=== PATIENT | female | born 1980 | race Caucasian/White ===

== ENCOUNTER 2022-08-28 03:42 | Emergency (ER) | payer BC, SELFPAY ==
[2022-08-28 03:57] VITALS: BP 125/85; PULSE 115; RESP 18; TEMP 36.8; O2SAT 99; BMI 23.9
[2022-08-28 04:35] VITALS: O2SAT 98
[2022-08-28] MEDS: 0.9 % SODIUM CHLORIDE 1000 ml 1,000 ML IV (04:43)
--- OUTSIDE RECORDS SUMMARY | 2022-08-28 04:47 | XMS_ITS | Encounter Summary ---
:1980 Author Organization [facility] Address [address] [place] [address] Care Team Providers Name Role Phone Ashley Ojeda DO Primary Care Provider Reason for Visit Reason Comments Consult Joint Pain Consultation (Routine) - Pending Review Specialty Diagnoses / Procedures Referred By Contact Refer red To Contact Rheumatology Diagnoses Inflammatory polyarthritis (H) Ashley [facility] DO [facility] [address] [place] [address] Referral ID Status Reason Start Date Expiration Date Visits V isits Requested Authorized [id number] Pending 07/06/2022 07/06/2023 1 1 Review Encounter Details Date Type Department Care Team Description 07/14/2022 Office Visit [facility] Pamella Soto gatchi erosive rheumatoid arthritis (H) (Primary Dx); [facility] [place] MAHIN Ferguson High risk medications (not anticoagulant s) long-term use; [address] [facility] [place] [address] [place], [place] [phone] (Work) [phone] Social History Tobacco Use Types Packs/Day Years Used Date Smoking Tobacco: Never Smokeless Tobacco: Never Sex Assigned at Date Recorded Not on file COVID-19 Exposure Response Date Recorded In the last 10 days, have you been in contact with No / Unsu re 07/14/2022 9:52 AM CDT someone who was confirmed or suspected to have Coronavirus/COVID-19? documented as of this encounter Last Filed Vital Signs Vital Sign Reading Time Taken Comments Blood Pressure 120/80 07/14/2022 9:57 AM CDT Pulse - - Temperature - - Respiratory Rate - - Oxygen Saturation - - Inhaled Oxygen Concentration - - Weight 59 kg (130 lb) 07/14/2022 9:57 AM CDT Height 170.2 cm (5' 7) 07/14/2022 9:57 AM CDT Body Mass Index 20.36 07/14/2022 9:57 AM CDT documented in this encounter Patient Instructions Patient InstructionsPamella Soto PA-C - 07/14/2022 10:00 AM CDT After Visit Instructions: Thank you for coming to [facility] Rheumatology for your care. It is my goal to partner with you to help you reach your optimal state of health. Plan: Will get you scheduled with one of our Staff Instrument Mechanic MD's for their opinion. I will send a message and someone will call you to help get you scheduled with them. Pamella Soto PA-C [facility] Rheumatology [facility] Contact information: [facility] Rheumatology Clinic Number: [phone] Please call or send a [place] message with any questions about your care documented in this encounter Progress Notes Pamella Soto PA-C - 07/14/2022 10:00 AM CDT Rheumatology Clinic Visit [facility] RENNY Myers Date of : 1980 Age: [age] year old Date of Visit: 07/14/2022 Primary care provider: Ashley Ojeda Assessment and Plan: 1. Seronegative rheumatoid arthritis 2. High-risk medication use 3. On prednisone therapy Patient presents today with her mother for an evaluation of her seronegative rheumatoid arthritis. She has been working with rheumatology for many years and unfortunately has had difficult to control disease. Most recently she has tried rituximab. She received the second dose in March. Unfortunately she has not noticed a benefit from it. She continues on daily prednisone. She reports being on prednisone therapy for at least 20 years. She has been unable to go lower than 10 mg due to an uptick in symptoms. Unfortunately she has also started to have side effects to the prednisone including mood changes and she also feels that it is affecting her spine. She presents today to seek a second opinion. Discussed with the patient that she has had very difficult to treat rheumatoid arthritis having tried multiple immunomodulatory medications including conventional DMARDs as well as Biologics without significant benefit. Most recently she had 2 doses of rituximab. She continues to have very active disea se. She has significant synovitis of her bilateral wrists. She is starting to have some flexion deformities of her PIPs and has significant reduced range of motion of her bilateral wrists. As she has been on multiple forms of immunomodulatory medication and continues to have persistent disease I thinkshe should see one of our staff insurance representative for further treatment recommendations. Patient is open to this. She is aware that she will get a call for this appointment. Pamella Soto, [facility] Rheumatology History of Present Illness: Ashley Gardner presents for evaluation of seronegative rheumatoid arthritis. History of blood clots.History of TAMIKA (diagnosed at age 13). She has had a right total hip arthroplasty (February 2021). She states that she is looking for a second opinion on something that can benefit her for her arthritis. She states that she has tried working with other providers and she would like to see what other options are. She states she would try something and she would not benefit but would also feel that her internal system was failing with what she tried. She states that she has had too many close calls. She most recently tried rituximab. She states that when she got the second dose of rituximab she had an allergic reaction and feels there were too many red flags. She states that she has been very sensitive to medications. She received her 2nd dose of Rituximab in 04/15. Patient has been working with Dr. Zendejas. Last office visit was June 04, 2022. She is currently on Prednisone. She feels this is affecting her spine. She takes 10mg daily. She states that sometimes she thinks she needs to take more. She feels that she needs to take something in order to physically walk. She is not sure when she was last off Prednisone. She thinks she has been on this for at lease 20years. She states that currently she has pain in her hands, wrists, spine, hips, feet and ankles. She has been having some neck pain as well. She went to the chiropractor to have an adjustment. Rheumatologic medications: Tried infliximab and etanercept, or adalimumab, rituximab (most recent) abatacept, leflunomide (caused her to feel out of it), methotrexate (caused shortness of breath), tocilizumab. Upadacitinib (only took for a couple of days, stopped as she noticed swelling in one of her ankles), azathioprine, cyc losporine, sulfasalazine. Allergy list notes that she is allergic to hydroxychloroquine and sulfa. Tofacitinib cause shortness of breath, left-sided pain, rash and UTI Pertinent lab history: ?? HLA-B27 was negative in 2019 ?? And 2018 she had a positive LONNIE with a homogenous pattern and a titer of 1: 320, sub serologies including the X RAY PHYSICIAN, [place], SSA, and SSB were all normal/negative, double-stranded DNA was negative ?? In 2018 the CCP antibody and rheumatoid factor were both normal/negative Review of Systems: Constitutional: negative Skin: negative Eyes: negative Ears/Nose/Throat: negative Respiratory: No shortness of breath, dyspnea on exertion, cough, or hemoptysis Cardiovascular: negative Gastrointestinal: negative Genitourinary: negative Musculoskeletal: as above Neurologic: negative Psychiatric: negative Hematologic/Lymphatic/Immunologic: negative Endocrine: negative Active Problem List: There are no problems to display for this patient. Past Medical History: No past medical history on file. No past surgical history on file. Social History: Social History Socioeconomic History ??? Marital status: Single Spouse name: Not on file ??? Number of children: Not on file ??? Years of education: Not on file ??? Highest education level: Not on file Occupational History ??? Not on file Tobacco Use ??? Smoking status: Not on file ??? Smokeless tobacco: Not on file Substance and Sexual Activity ??? Alcohol use: Not on file ??? Drug use: Not on file ??? Sexual activity: Not on file Other Topics Concern ??? Not on file Social History Narrative ??? Not on file Social Determinants of Health Financial Resource Strain: Not on file Food Insecurity: Not on file Transportation Needs: Not on file Physical Activity: Not on file Stress: Not on file Social Connections: Not on file Intimate Partner Violence: Not on file Housing Stability: Not on file Family History: No family history on file. Allergies: Allergies Allergen Reactions ??? [place] Oil Anaphylaxis ??? Methotrexate Shortness Of Breath ??? Sodium Metabisulfite Shortness Of Breath ??? Tofacitinib Shortness Of Breath Left side pain, rash, uti ??? Estrogens Other reaction(s): *Unknown ??? Leflunomide Other (See Comments) out of it ??? Enoxaparin Rash ??? Penicillins Rash Medications: No current outpatient medications on file. Physical Exam: There were no vitals taken for this visit. Wt Readings from Last 6 Encounters: 02/05/22 59 kg (130 lb) Constitutional: well-developed, appearing stated age; cooperative Eyes: nl PERRLA, conjunctiva, sclera ENT: nl external ears, nose, hearing, lips, teeth, gums, throat. No mucositis. No mucous membrane lesions, normal saliva pool Neck: no mass or thyroid enlargement Resp: lungs clear to auscultation CV: RRR, no murmurs, rubs or gallops, no edema Lymph: no cervical, supraclavicular or epitrochlear nodes MS: The TMJ, shoulder, elbow, wrist, MCP/PIP/DIP, knee, ankle, and foot MTP/IP joints were examined.No MTP squeeze tenderness. She has tenderness to palpation of her bilateral wrists with very active synovitis. She has some flexion deformities of the left second third and fourth PIPs and the second and third right PIPs. Significantly reduced range of motion of bilateral wrists. She has full joint range of motion of the bilateral shoulders. Skin: no nail pitting, alopecia, rash, nodules or lesions. Neuro: nl cranial nerves. Psych: nl judgement, orientation, memory, affect. Data: Imagin02/05/2022 xray right shoulder Impression: ?? 1. Right shoulder negative for fracture or joint malalignment. ?? 2. Maintained joint spacing in the glenohumeral and acromioclavicular joints, with relative absence of degenerative arthritis. ?? 3. Cortical erosions versus defect in the posterior superior humeral head, may represent sequela of inflammatory arthritis, chronic rotator cuff tendinopathy, or prior humeral subluxation injury. No glenoid deformity or erosion. 04/29/2021 xray left wrist IMPRESSION: 1. Narrowing of the radiocarpal joint space. 2. Flexion subluxation of the radiocarpal joint space best appreciate on the lateral view may be more positional than real. 3. Questionable irregularity the dorsal triquetrum. Without trauma this is unlikely to reflect a fracture. 4. Dorsal soft tissue swelling. Xray lumbar spine 08/12/2020 IMPRESSION. See subsequent report for SI joints. Mild nonspecific degeneration in the facet joints at L5-S1. Associated disc degeneration and narrowing is present. Remaining lumbar disc spaces appear normal with normal alignment. No signs of acute compression fracture, suspicious osseous lesion, There is advanced joint space narrowing in the hips. Xray SI joints 08/12/2020 IMPRESSION: Joint spaces are maintained. No bony ankylosis or marginal erosive changes by conventional radiography. No fractures or osseous suspicious lesions. Advanced joint space narrowing is present in the right hip and superior joint space narrowing to a lesser degree within the left hip along the superior joint margin. Laboratory: 04/07/2021 AST 30, ALT 35 Albumin 3.1 05/12/2022 Creatinine 0.62, GFR greater than 90 White blood cell count 12.8, hemoglobin 9.1, platelet count 459 Sed rate 102 C-reactive protein 9.67 documented in this encounter Plan of Treatment Upcoming Encounters Date Type Specialty Care Team Description 11/20/2022 Office Visit Rheumatology Eugenio Flaherty MD [address] [place] [id number] (Wo rk) documented as of this encounter Visit Diagnoses Diagnosis Seronegative erosive rheumatoid arthriti s (H) - Primary High risk medications (not anticoagulant s) long-term use Encounter for long-term (current) use of other medications On prednisone therapy documented in this encounter Care Teams School Bus Driver/Teacher Assistant Relationship Specialty Start Date End Date Ashley Ojeda DO PCP - General 02/05/[address] [id number] documented as of this encounter
--- OUTSIDE RECORDS SUMMARY | 2022-08-28 04:47 | XMS_ITS | Clinical Summary ---
:1980 Author Organization [employer] Address [place] [address] Care Team Providers Name Role Phone Ashley Ojeda Primary Care Provider Niraj Zendejas MD Unavailable Madeline Pickard MD Unavailable Angie Balderrama CLERICAL ADMINISTRATOR Unavailable Allergies Active Allergy Reactions Severity Noted Date Comments [place] Anaphylaxis High 04/27/2020 Estrogens *Unknown 09/20/2012 Leflunomide Other - Describe In Comment 01/10/2018 out of it Field Enoxaparin Rash 09/19/2009 Methotrexate Shortness Of Breath 01/10/2018 Penicillins Rash 12/30/2006 Sulfite Shortness Of Breath 10/17/2019 Tofacitinib Shortness Of Breath 10/17/2019 Left susanne e pain, rash, uti Medications Medication Sig Dispensed Refills Start End Date Status Date predniSONE Take 2 Tablets 100 Tablet 1 Act chi (DELTASONE) 5 mg (10 mg) by mouth 2 tabletIndication once daily with a s: Rheumatoid meal. Or as arthritis, directed seropositive (HC) escitalopram Take 1/2 tab 30 Tablet 0 08/12/20 Disc ontinued oxalate daily. 2 22 (*Patient states (LEXAPRO) 5 mg no lo nger tabletIndication maude ing/Not on s: Depression, sendi ng facility unspecified list) depression type ibuprofen Take 1 Tablet 30 Tablet 0 08/12/20 Discon tinued (ADVIL; MOTRIN) (600 mg) by mouth 2 22 (*Patient states 600 mg every 6 hours if no longer tabletIndication needed for Pain. taking/Not on s: Rheumatoid Maximum of 3200 sending facility arthritis of mg in 24 hours. l ist) both ankles, unspecified whether rheumatoid factor present (HC), Pain in both lower extremities, ESR raised HYDROcodone-acet Take 1-2 Tablets 15 Tablet 0 Discontinued aminophen by mouth every 4 2 22 (*P atient states (NORCO) 5-325 mg hours if needed no longer per for Pain. Max taking /Not on tabletIndication acetaminophen sending facility s: Rheumatoid dose: 4000mg in list) arthritis of 24 hrs. both ankles, unspecified whether rheumatoid factor present (HC), Pain in both lower extremities, ESR raised HYDROcodone-acet Take 1 Tablet by 15 Tablet 0 aminophen mouth every 4 2 22 ([place]) 5-325 mg hours if needed per for Pain. Max tabletIndication acetaminophen s: Rheumatoid dose: 4000 mg in arthritis 24 hrs. involving left wrist, unspecified whether rheumatoid factor present (HC) Active Problems Problem Noted Date History of DVT of lower extremity 03/19/2021 Status post total replacement of left hip 03/19/2021 Steroid dependence 03/13/2021 Refused influenza vaccine 08/20/2020 Inflammatory polyarthritis 08/20/2020 Hypokalemia 07/19/2020 Overview: Formatting of this note is dif ferent from the original. Secondary to prednisone. POTASSIUM (mmol/L) Date Value 07/19/2020 2.6 (LL) Marijuana use 07/19/2020 Overview: 07/19/2020 positive urine tox screen Generalized weakness 07/19/2020 Microcytic anemia, chronic 07/19/2020 Overview: Formatting of this note is dif ferent from the original. Baseline Hemoglobin 9-10. HEMOGLOBIN (g/dL) Date Value 07/19/2020 9.9 (L) Pain and swelling of left lower leg 07/19/2020 Overview: 07/19/2020 rule out deep vein thrombosis. Personal history of allergy to medicinal agent 020 Food allergy 05/17/2020 Vitamin D deficiency 11/10/2015 Rheumatoid arthritis 08/01/2015 Overview: Chronic corticosteroid use Anticoagulation monitoring, INR range 2-3 10/07/2012 Lumbar disc herniation with radiculopathy 09/20/2012 Factor V Leiden Deficiency 12/30/2006 Overview: History of deep vein thrombosis. 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 11/17/2006 12/05/2006 Acute Venous Embolism and Thrombosis of Other Specified 03/200712/05/2006 Veins Encounters Date Type Specialty Care Team Description 08/26/2022 Office Visit Kristian Stockton, Chiropra ctic Care (NDI DC 42%, REGGIE 36%, K EELE 4/0, 08/19/22: Neck/Upper/Lowe r back pain) 08/26/2022 Travel 08/24/2022 Hospital Encounter Ashley Ojeda DO Rheumatoid arthritis Diandra Thakur, involvi ng right hip, PT unspecified whe ther rheumatoid fact or present (HC) 08/24/2022 Travel 08/19/2022 Office Visit Kristian Stockton Chiropra ctic Care (NDI DC 42%, REGGIE 36%, K EELE 4/0, 08/19/22: Neck/Upper/Lowe r back pain) 08/19/2022 Travel 08/17/2022 Phone Office Visit Anel Villafuertee; Hip MD Leann Pain/problem; B ack Pain; Phone Visit 08/14/2022 Travel 08/14/2022 Nurse Triage Ashley Ojeda DO Back P ain 08/14/2022 Telephone Niraj Zendejas Error-pl ease disregard (See triage enc ounter of today instead o f this encounter) 08/12/2022 Office Visit Vinayak Rubin, Wrist P ain/problem ([facility] ) 08/12/2022 Travel 08/12/2022 Nurse Triage Ashley Ojeda DO Hand P ain/problem 07/28/2022 Telephone Ashley Ojeda DO Referr al (Physical therapy ) 07/22/2022 Telephone Niraj Zendejas, Concerns 07/02/2022 Telephone Ashley Ojeda DO messag e 06/26/2022 Telephone Niraj Zendejas, Hip Pain /problem 06/04/2022 Office Visit Niraj Zendejas, Follow U p (Last Visit 03/18/22) 06/04/2022 Travel from Last 3 Months Immunizations Name Administration Dates Next Due Influenza, IIV3 (Age >=3 years) 08/26/2009, 08/24/2007 MMR 02/12/1995 Td (Age >=7 Years) 06/11/1998 Tdap 04/07/2015 Tuberculin (PPD) 02/19/2003 Family History Medical History Relation Name Comments Asthma Brother Arthritis Father Tariq Cancer Father Tariq kidney Diabetes Father Tariq GI Disease Father Tariq Hypertension Father Tariq Psychiatric illness Father Tariq Depression Blood Disease Maternal Grandmother clotting di sorder Allergies Mother Estrella Arthritis Mother Estrella Hypertension Mother Estrella Psychiatric illness Mother Estrella Depression Blood Disease Paternal Aunt factor v clottin g disorder Relation Name Status Comments Brother Father Tariq Alive Maternal Grandmother Mother Estrella Alive Paternal Aunt Social History Tobacco Use Types Packs/Day Years Used Date Former Smoker Cigarettes 0 7 Quit: 12/22/19 13 Smokeless Tobacco: Never Used Tobacco Cessation: Counseling Given: Yes Comments: not currently smoking Alcohol Use Standard Drinks/Week Comments No 0 (1 standard drink = 0.6 oz pure alcoho l) Alcohol Habits Answer Date Recorded How often do you have a drink containing alcohol? Never 03/30/2019 How many drinks containing alcohol do you have on a typical Not asked day when you are drinking? How often do you have six or more drinks on one occasion? No t asked Comment: Not asked Sex Assigned at Date Recorded Not on file COVID-19 Exposure Response Date Recorded In the last 10 days, have you been in contact with No / Unsu re 08/26/2022 10:03 AM CDT someone who was confirmed or suspected to have Coronavirus/COVID-19? Obstetrics History Para Term AB IAB SAB Ectopic Multiple Living Live Births 2 1 1 0 0 0 0 0 1 1 Date Outcome GA Total Labor/2nd/3rd Weight Sex Delivery Anes PTL Nicki A 1 A5 Name Clin Labor Term 06/01 38w 3.35 kg M Vag Intra Nataly 8 9 den McInt /2004 0d (7 lb 6 theca ng yre oz) l Delivery Location: [facility] Last Filed Vital Signs Vital Sign Reading Time Taken Comments Blood Pressure 116/78 08/19/2022 10:06 AM CDT Pulse 88 08/19/2022 10:06 AM CDT Temperature 36.8 ??C (98.2 ??F) 05/12/2022 6:43 AM CDT Respiratory Rate 16 06/04/2022 9:31 AM CDT Oxygen Saturation 98% 08/12/2022 3:59 PM CDT Inhaled Oxygen Concentration - - Weight 63.5 kg (140 lb) 08/19/2022 10:06 AM CDT Height 169.5 cm (5' 6.75) 08/19/2022 10:06 AM CDT Body Mass Index 22.09 08/19/2022 10:06 AM CDT Plan of Treatment Upcoming Encounters Date Type Specialty Care Team Description 08/28/2022 Office Visit Ashley Ojeda, DO [address] [place], [place] [address] (Wo rk) 08/28/2022 Appointment Hoda Thakur, PT [address] [place] [address] (Wo rk) 08/31/2022 Office Visit Kristian Stockton, RHONDA [address] [facility] [address] [place] [address] (Wo rk) 08/31/2022 Appointment 09/04/2022 Appointment Hoda Thakur, PT [address] [place], [place] [id number] (Wo rk) 10/05/2022 Office Visit Niraj Zendejas MD [address] [facility] [address] [place] [address] (Wo rk) Health Maintenance Due Date Last Done Comments COVID-19 vaccine series (#1) 06/21/1983 Influenza for age 9-49 06/25/2022 08/26/2009, 08/24/2007 Depression screening for age 12+ 04/12/2023 04/12/2022, , 03/16/2022, Additional history exists Pap test for age 21-65 08/12/2023 08/12/2020, 11/01/2015, 07/22/2012, Additional history exists BMI (ht and wt on same day) for 08/19/2023 08/19/2022, 07/25, age 18+ 06/17/2021, Additional history exists Tetanus booster 04/07/2025 04/07/2015, 06/11/1998 Tdap Completed 04/07/2015 Hepatitis C screening for age Completed 05/22/2021 18-79 Medical Devices Implanted Type Area Warhead Maintenance Specialist Device Shelf Model / Identifier Expiration Serial / Lot Date [id number] - [id number] [employer] Delta Ceramic V40 Femoral Head Right: Mikana 11/27/2024 [id number] / Implanted: Qty: 1 on 03/19/2021 by Noah Beard MD at [facility] [employer] / [id number] Procedures Procedure Name Priority Date/Time Associated Comments Diagnosis CWS PATH REVIEW Routine 08/12/2022 4:43 PM Rheumatoid Result s for this HEMATOLOGY CDT arthritis involving procedur e are in left wrist, the results unspecified whether section. rheumatoid factor present (HC) RED CELL MORPHOLOGY Routine 08/12/2022 4:43 PM Rheumatoid Re sults for this CDT arthritis involving procedur e are in left wrist, the results unspecified whether section. rheumatoid factor present (HC) PLATELET ESTIMATE Routine 08/12/2022 4:43 PM Rheumatoid Resu lts for this CDT arthritis involving procedur e are in left wrist, the results unspecified whether section. rheumatoid factor present (HC) CBC WITH AUTO Routine 08/12/2022 4:43 PM Rheumatoid Results for this DIFFERENTIAL CDT arthritis involving procedur e are in left wrist, the results unspecified whether section. rheumatoid factor present (HC) C-REACTIVE PROTEIN Routine 08/12/2022 4:43 PM Rheumatoid Res ults for this CDT arthritis involving procedur e are in left wrist, the results unspecified whether section. rheumatoid factor present (HC) SEDIMENTATION RATE Routine 08/12/2022 4:43 PM Rheumatoid Res ults for this CDT arthritis involving procedur e are in left wrist, the results unspecified whether section. rheumatoid factor present (HC) CBC WITH AUTO Routine 08/12/2022 4:43 PM Rheumatoid Results for this DIFFERENTIAL CDT arthritis involving procedur e are in left wrist, the results unspecified whether section. rheumatoid factor present (HC) from Last 3 Months Results CWS PATH REVIEW HEMATOLOGY (08/12/2022 4:43 PM CDT) Analysis Performed At [facility] logist Time Signature PATH COMMENT See 08/14/[address] Comment: 3:37 PM CDT LABORATORY-[facility] Comment: Consider peripheral blood morph ology study for high platelets if persists with unknown etiology. Reviewed by Mai Estrada MT, MS ([facility]) on 08/14/2022 Specimen Anatomical Collection Method / Collection Time Recei omar Time (Source) Location / Volume Laterality Blood BLOOD SPECIMEN / Venipuncture / 08/12/2022 4:43 2021 4:45 Unknown Unknown PM CDT PM CDT Vinayak Rubin MD LABORATORY Performing Organization Address City/State/ZIP Code Phon e Number [address] [place] [address] LABORATORY-CENTRAL 2000 LABORATORY (ABNORMAL) SEDIMENTATION RATE (08/12/2022 4:43 PM CDT) [facility] gist Method Time Signature SEDIMENTATION RATE 58 (H) <20 mm/hr 08/12/2022 [facility] 10:31 PM CDT LAB[facility]ATORY[facility] Specimen Anatomical Collection Method / Collection Time Recei omar Time (Source) Location / Volume Laterality Blood BLOOD SPECIMEN / Venipuncture / 08/12/2022 4:43 2021 4:45 Unknown Unknown PM CDT PM CDT Vinayak Rubin MD HEMATOLOGY Performing Organization Address City/State/ZIP Code Phon e Number [address] [place] [address] LABORATORY-CENTRAL 1999 LABORATORY (ABNORMAL) CBC WITH AUTO DIFFERENTIAL (08/12/2022 4:43 PM CDT) [facility] Method Time Signature WHITE BLOOD 13.1 (H) 4.5 - 11.0 08/12/2022 [facility] [address] COUNT thou/cu mm 5:26 PM CDT [facility] RED BLOOD COUNT 5.50 (H) 4.00 - 08/12/2022 [facility] [address] 5.20 5:26 PM CDT [facility] mil/cu mm HEMOGLOBIN 11.0 (L) 12.0 - 08/12/2022 [facility] [address] 16.0 g/dL 5:26 PM CDT [facility] HEMATOCRIT 37.5 33.0 - 08/12/2022 [facility] [address] 51.0 % 5:26 PM CDT [facility] MCV 68 (L) 80 - 100 08/12/[address] fL 5:26 PM CDT [facility] MCH 20.0 (L) 26.0 - 08/12/2022 [facility] [address] 34.0 pg 5:26 PM CDT [facility] MCHC 29.3 (L) 32.0 - 08/12/2022 [facility] [address] 36.0 g/dL 5:26 PM CDT [facility] RDW 21.5 (H) 11.5 - 08/12/2022 [facility] [address] 15.5 % 5:26 PM CDT [facility] PLATELET COUNT 766 (H) 140 - 440 08/12/2022 [facility] [address] thou/cu mm 5:26 PM CDT [facility] MPV 9.2 6.5 - 11.0 08/12/[address] fL 5:26 PM CDT [facility] % NEUT 69.9 % 08/12/2022 [facility] 5:26 PM CDT [facility] % LYMPH 21.8 % 08/12/2022 [facility] [address] 5:26 PM CDT [facility] % MONO 7.7 % 08/12/2022 [facility] [address] 5:26 PM CDT [facility] % EOS 0.3 % 08/12/2022 [facility] 5:26 PM CDT [facility] % BASO 0.3 % 08/12/2022 [facility] 5:26 PM CDT [facility] ABSOLUTE 9.1 (H) 1.7 - 7.0 08/12/2022 [facility] NEUTROPHILS thou/cu mm 5:26 PM CDT [facility] ABSOLUTE 2.9 0.9 - 2.9 08/12/2022 [facility] LYMPHOCYTES thou/cu mm 5:26 PM CDT [facility] ABSOLUTE 1.0 (H) <0.9 08/12/2022 [facility] MONOCYTES thou/cu mm 5:26 PM CDT [facility] ABSOLUTE 0.0 <0.5 08/12/2022 [facility] EOSINOPHILS thou/cu mm 5:26 PM CDT [facility] ABSOLUTE 0.0 <0.3 08/12/2022 [facility] BASOPHILS thou/cu mm 5:26 PM CDT [facility] Specimen Anatomical Collection Method / Collection Time Recei omar Time (Source) Location / Volume Laterality Blood BLOOD SPECIMEN / Venipuncture / 08/12/2022 4:43 2021 4:45 Unknown Unknown PM CDT PM CDT Vinayak Rubin MD HEMATOLOGY Performing Organization Address City/[facility]/ZIP Code Phon e Number [facility] [address] [place] [phone] (ABNORMAL) RED CELL MORPHOLOGY (08/12/2022 4:43 PM CDT) [facility] gist Method Time Signature ELLIPTOCYTES Few 08/12/2022 [facility] 5:26 PM CDT [facility] POLYCHROMASIA Slight 08/12/2022 [facility] 5:26 PM CDT [facility] RBC COMMENT Present (A) RBC morphology 08/12/2022 [facility] appears 5:26 PM CDT [facility]ALTH normal, RBC [facility] within normal limits for newborns. Specimen Anatomical Collection Method / Collection Time Recei omar Time (Source) Location / Volume Laterality Blood BLOOD SPECIMEN / Venipuncture / 08/12/2022 4:43 2021 4:45 Unknown Unknown PM CDT PM CDT Vinayak Rubin MD HEMATOLOGY Performing Organization Address City/[facility] Phon e Number [facility] [address] [place] [phone] (ABNORMAL) PLATELET ESTIMATE (08/12/2022 4:43 PM CDT) [facility] Method Time Signature PLATELET Increased (A) Adequate, No 08/12/2022 [facility] ESTIMATE estimate 5:26 PM CDT [facility] Specimen Anatomical Collection Method / Collection Time Recei omar Time (Source) Location / Volume Laterality Blood BLOOD SPECIMEN / Venipuncture / 08/12/2022 4:43 2021 4:45 Unknown Unknown PM CDT PM CDT Vinayak Rubin MD HEMATOLOGY Performing Organization Address [facility] Phon e Number [facility] [address] [place] [phone] (ABNORMAL) C-REACTIVE PROTEIN (08/12/2022 4:43 PM CDT) [facility] Method Time Signature C-REACTIVE 17.25 (H) <0.50 08/13/2022 [facility] PROTEIN mg/dL 7:08 AM CDT LAB[facility]ATORY[facility] Specimen Anatomical Collection Method / Collection Time Recei omar Time (Source) Location / Volume Laterality Blood BLOOD SPECIMEN / Venipuncture / 08/12/2022 4:43 2021 4:45 Unknown Unknown PM CDT PM CDT Vinayak Rubin MD CHEMISTRY Performing Organization Address City/[facility]/ZIP [facility] Phon e Number [facility] [address] [place] [address] LABORATORY-CENTRAL 2000 LABORATORY from Last 3 Months Insurance Payer Benefit Plan / Subscriber ID Effective Dates Phone Addre ss Type Group [employer] [place] [employer] [id number] 2019-Present [address] [address] [place] [address] Advance Directives Latest Code Status on File Code Status Date Activated Date Inactivated Comments Full Code 03/19/2021 5:44 AM 03/20/2021 1:48 PM Code Status Discussion: Discussed Full Code 07/19/2020 10:25 PM 07/20/2020 11:19 AM Code Status Discussion: Not Discussed Full Code 09/21/2012 4:47 PM 09/22/2012 1:38 PM Full Code 09/20/2012 6:48 PM 09/21/2012 4:47 PM Care Teams Community Product Specialist Relationship Specialty Start Date End Date Ashley Ojeda DO PCP - General Internal Medicine 09/27/17 100 [facility] [place] [address] Niraj Zendejas MD Rheumatology Rheumatology 01/10/18 225 [facility] [address] [place] [address] Madeline Pickard MD Hematology Hematology and Oncology 05/05/21 [address] [place] [address] Angie Balderrama NP Hematology Hematology and Oncology 05/05/21 [address] [place] [address]
--- OUTSIDE RECORDS SUMMARY | 2022-08-28 04:47 | XMS_ITS | Encounter Summary ---
:1980 Author Organization [place] Address [facility] [address] Care Team Providers Name Role Phone Ashley Ojeda DO Primary Care Provider Pamella Soto PA-C Unavailable [phone] Reason for Visit Reason Onset Date Comments Patient Request 07/16/2022 Encounter Details Date Type Department Care Team Description 07/16/2022 [facility] Pamella Soto, Patient Request [place] [facility] [address] [place] [address] [place] [address] [phone] (Wo rk) Social History Tobacco Use Types Packs/Day Years Used Date Smoking Tobacco: Never Smokeless Tobacco: Never Sex Assigned at Date Recorded Not on file COVID-19 Exposure Response Date Recorded In the last 10 days, have you been in contact with No / Unsu re 07/14/2022 9:52 AM CDT someone who was confirmed or suspected to have Coronavirus/COVID-19? documented as of this encounter Miscellaneous Notes Telephone Encounter - Stefania Resendiz - 07/16/2022 9:54 AM CDT [facility] Phone Message May a detailed message be left on voicemail: yes Reason for Call: Other: Questions Pt saw Pamella on 07/14/22. Pamella mentioned pt should see our staff national sales executive for further treatment and that someone will be reaching out to her. She stated she has not received a call yet, and is feeling worst. Pt would like a call back from care to team to see what she can do. Action Taken: Other: [place]HEUM Travel Screening: Not Applicable documented in this encounter Plan of Treatment Upcoming Encounters Date Type Specialty Care Team Description 11/20/2022 Office Visit Rheumatology Eugenio Flaherty MD [address] [place] [phone] (Wo rk) documented as of this encounter Visit Diagnoses Not on filedocumented in this encounter Care Teams Configuration Manager Relationship Specialty Start Date End Date Ashley Ojeda DO PCP - General 02/05/[address] [address] Pamella Soto, Assigned Rheumatology 07/18/22 PA-C Provider [facility] [place] [address] documented as of this encounter
--- OUTSIDE RECORDS SUMMARY | 2022-08-28 04:47 | XMS_ITS | Encounter Summary ---
:1980 Author Organization [place] Address [facility] [place] [address] Care Team Providers Name Role Phone Ashley Ojeda Primary Care Provider Pamella Soto PA-C Unavailable [phone] Reason for Visit Reason Onset Date Comments Flare 07/21/2022 Encounter Details Date Type Department Care Team Description 07/21/2022 Telephone [facility] Pamella Soto Flare [place] [facility] [address] [facility] [address] [place] [address] [place] [address] [phone] (Wo rk) Social History Tobacco Use Types [...] this encounter Miscellaneous Notes Telephone Encounter - Yun Galloway RN - 07/22/2022 10:07 AM CDT Called patient. Patient is unsteady on her feet. And concerned with future ability for ADL and workability preservation. Discussed patient feels lost in self researching her options and self researching has become overwhelming. Advised that often times Just reaching out to the [facility] services can help answer questions/ focus some of her options and reminded it is good to ensure her previous providers who are aware of her hx and tried and failed can provide the best information for her. [facility] RN Telephone Encounter - Pamella Soto PA-C - 07/22/2022 9:48 AM CDT If she can get in sooner that would be ideal. This is for a second opinion. If she feels she needs more prednisone, she should reach out to her corrosion technician with [facility] until she can be seen with rheum. Pamella Soto PA-C on 07/22/2022 at 9:49 AM Telephone Encounter - Yun Galloway RN - 07/21/2022 4:45 PM CDT Pamella; Pt appt with Asparagus Cutter is not until after of the year. 1: Was the intention to get her in sooner with a Provider or was it to be next available? 2: Note indicates not ideal to do prednisone bursts any longer because pt base is at 10 daily already. RN will triage however please indicate any expectation to provide to patient as far as what we can offer until sees Other Provider. [facility] RN Telephone Encounter - Angie Norton - 07/21/2022 9:57 AM CDT Patient is experiencing a flare with all over body pain. She is having difficulty moving around at all. Needs assistance to walk. documented in this encounter Plan of Treatment Upcoming Encounters Date Type Specialty Care Team Description 11/20/2022 Office Visit Rheumatology Eugenio Flaherty MD [address] [place] [phone] (Wo rk) documented as of this encounter Visit Diagnoses Not on filedocumented in this encounter Care Teams Racker Octave Board Relationship Specialty Start Date End Date Ashley Ojeda, PCP - General 02/05/[address] [address] Pamella Soto, Assigned Rheumatology 07/18/22 PA-C Provider [address] [place] [phone] documented as of this encounter
--- OUTSIDE RECORDS SUMMARY | 2022-08-28 04:47 | XMS_ITS | Encounter Summary ---
:1980 Author Organization [place] Address [facility] [place] [address] Care Team Providers Name Role Phone Ashley Ojeda DO Primary Care Provider Reason for Referral Consultation (Routine: Next available opening) - Pending Review Specialty Diagnoses / Procedures Referred By Contact Refer red To Contact Rheumatology Diagnoses Inflammatory polyarthritis (H) Shine Storey MD Referral ID Status Reason Start Date Expiration Date Visits V isits Requested Authorized [id number] Pending 02/05/2022 02/05/2023 1 1 Review Reason for Visit Reason Comments Generalized Body Aches Encounter Details Date Type Department Care Team Description 02/05/2022 Emergency [facility] Blossom Storey MD Acute pain of right shoulder; [facility] Inf lammatory polyarthritis (H); Dept [place] Anemia, unspecified type [address] [facility] [address] [place], [place] [phone] Social History Tobacco Use Types Packs/Day Years Used Date Smoking Tobacco: Never Assessed Sex Assigned at Date Recorded Not on file COVID-19 Exposure Response Date Recorded In the last 10 days, have you been in contact with No / Unsu re 02/05/2022 6:54 AM CDT someone who was confirmed or suspected to have Coronavirus/COVID-19? documented as of this encounter Last Filed Vital Signs Vital Sign Reading Time Taken Comments Blood Pressure 109/68 02/05/2022 10:00 AM CDT Pulse 105 02/05/2022 8:15 AM CDT Temperature 36.6 ??C (97.8 ??F) 02/05/2022 6:58 AM CDT Respiratory Rate 18 02/05/2022 6:58 AM CDT Oxygen Saturation 94% 02/05/2022 10:00 AM CDT Inhaled Oxygen Concentration - - Weight 59 kg (130 lb) 02/05/2022 6:58 AM CDT Height 170.2 cm (5' 7) 02/05/2022 6:58 AM CDT Body Mass Index 20.36 02/05/2022 6:58 AM CDT documented in this encounter Discharge Instructions Discharge InstructionsShine Storey MD - 02/05/2022 9:11 AM CDT Discharge Instructions Extremity Injury You were seen today for an injury to an extremity (arm, hand, leg, or foot). You may have a bruise, strain, or fracture (broken bone). Generally, every Emergency Department visit should have a follow-up clinic visit with either a primary or a specialty clinic/provider. Please follow-up as instructed by your emergency provider today. Return to the Emergency Department right away if: Your pain seems to change or get worse or there is pain in a new area that wasn???t evaluated today. Your extremity becomes pale, cool, blue, or numb or tingling past the injury. You have more drainage, redness or pain in the area of the cut or abrasion. You have pain that you cannot control with the medicine recommended or prescribed here, or you have pain that seems too much for your injury. Your child (who is injured) will not stop crying or is much more fussy than normal. You have new symptoms or anything that worries you. What to Expect: Your swelling and pain may be worse the day after your injury, but should not be severe and should start getting better after that. You should not have new symptoms and your pain should not get worse. You may start to get a bruise over the injured area or below the injured area (bruising can follow gravity). Your movement and strength should get better with time. Some injuries may not show up until after you have left the Emergency Department so it is important to follow-up as directed. Your injury may prevent you from working. Follow-up with your regular provider to get a work releasenote. Pain medications or your injury may make it unsafe to drive or operate machinery. Home Care: RICE: Rest, Ice, Compression, Elevation Rest: Rest your injured area for at least 1-2 days. After that you may start using your extremity again as long as there is not too much pain. Ice: Apply ice your injured area for 15 minutes at a time, at least 3 times a day. Use a cloth between the ice bag and your skin to prevent frostbite. Do not sleep with an ice pack or heating pad on, since this can cause varma or skin injury. Compression: You may use an elastic bandage (Avelino?? Wrap) if it makes you more comfortable. Wrap it just tight enough to provide light compression, like a new pair of socks feels. Loosen the bandage if you have swelling past the bandage. Elevation: Raise the injured area above the level of your heart as much as possible in the first 1-2days. Use Tylenol?? (acetaminophen), Motrin (ibuprofen), or Advil?? (ibuprofen) for your pain unless you have an allergy or are told not to use these medications by your provider. Take the medications as instructed on the package. Tylenol?? (acetaminophen) is in many prescription medicines and non-prescription medicines--check all of your medicines to be sure you aren???t taking more than 3000 mg per day. Please follow any other instructions that were discussed with you by your provider. Stretching/Exercises: You may have been provided with instructions for stretching or exercises. If your injury was to your arm or shoulder and your provider put you in a sling or an immobilizer, it is important that you take off your immobilizer within 3 days and stretch/move your shoulder, unless your provider specifically tells you to not move your shoulder. This is to prevent further injury such as a ???frozen shoulder?? . If you were given a prescription for medicine here today, be sure to read all of the information (including the package insert) that comes with your prescription. This will include important information about the medicine, its side effects, and any warnings that you need to know about. The pharmacist who fills the prescription can provide more information and answer questions you may have about the medicine. If you have questions or concerns that the pharmacist cannot address, please call or return to the Emergency Department. Remember that you can always come back to the Emergency Department if you are not able to see your regular provider in the amount of time listed above, if you get any new symptoms, or if there is anything that worries you. documented in this encounter Medications at Time of Discharge Medication Sig Dispensed Refills Start Date End Date oxyCODONE-acetaminophen Take 1 tablet by 10 tablet 0 202102/08/2022 (PERCOCET) 5-325 MG mouth every 6 hours tablet as needed for pain documented as of this encounter ED Notes Josee Hernandez RN - 02/05/2022 9:58 AM CDT Difficult IV stick Dillon Dumont RN - 02/05/2022 6:56 AM CDT Here for concern of whole body pain. This morning unable to move right shoulder and legs. Has appointment with her rheumotologist for pain control 02/19/22. Took prednisone at 3am. ABCs intact. Shine Storey MD - 02/05/2022 6:53 AM CDT History Chief Complaint: Generalized Body Aches The history is provided by the patient. Ashley Gardner is a 41 year old female with history of inflammatory polyarthritis and rheumatoid arthritis who presents with generalized body aches. Symptoms woke her up this morning at 0300. She was unable to move her right shoulder with associated swelling in her hands. No known trauma, fever, chills, cough, chest pain, vomiting, dysuria, or diarrhea. She describes her pain as a pinched nerve whichshe has experienced before. 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 Shereceived a steroid shot in her arm. She was discharged with a muscle relaxer and told to follow upwith her environmental health technician on February 19. She no longer takes cyclosporine, but she is currently takingprednisone. She last took 5mg of prednisone at 0300. Also, she recently had right hip placement surgery. Review of Systems Constitutional: Negative for chills and fever. Negative for trauma Respiratory: Negative for cough. Cardiovascular: Negative for chest pain. Gastrointestinal: Negative for diarrhea and vomiting. Genitourinary: Negative for dysuria. Musculoskeletal: Positive for arthralgias. All other systems reviewed and are negative. Allergies: Sulfite Estrogens Leflunomide Enoxaparin Methotrexate Penicillins Tofacitinib Medications: None Past Medical History: Rogers allergy DVT of lower extremity Steroid dependence Inflammatory polyarthritis Hypokalemia Microcytic anemia, chronic Vitamin D deficiency Rheumatoid arthritis Lumbar disc herniation with radiculopathy Factor V Leiden Deficiency Past Surgical History: Total replacement of right hip Synovectomy Lumbar diskectomy Family History: Brother: asthma Father: asthma, kidney cancer, diabetes mellitus, GI disease, hypertension, depression Mother: allergies, arthritis, hypertension, depression Social History: Presents with her mother. PCP: No primary care provider on file. Physical Exam Patient Vitals for the past 24 hrs: BP Temp Temp src Pulse Resp SpO2 Height Weight 02/05/22 1000 109/68 -- -- -- -- 94 % -- -- 02/05/22 0945 -- -- -- -- -- 96 % -- -- 02/05/22 0930 -- -- -- -- -- 98 % -- -- 02/05/22 0915 -- -- -- -- -- 97 % -- -- 02/05/22 0900 -- -- -- -- -- 97 % -- -- 02/05/22 0815 111/79 -- -- 105 -- 95 % -- -- 02/05/22 0800 106/66 -- -- 100 -- 99 % -- -- 02/05/22 0730 -- -- -- -- -- 97 % -- -- 02/05/22 0715 98/72 -- -- -- -- -- -- -- 02/05/22 0658 111/79 97.8 ??F (36.6 ??C) Temporal 113 18 100 % 1.702 m (5' 7) 59 kg (130 lb) Physical Exam Constitutional: Well appearing. HEENT: Atraumatic. Moist mucous membranes. Neck: Soft. Supple. No JVD. No swelling, tenderness, or masses. Cardiac: Regular rate and rhythm. No murmur or rub. Respiratory: Clear to auscultation bilaterally. No respiratory distress. No wheezing, rhonchi, or rales. Abdomen: Soft and nontender. Nondistended. Musculoskeletal: She has full active and passive range of motion of the right shoulder. 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 Mild tenderness of the posterior right shoulder with no erythema or effusion of the joint. Distal pulses are intact and symmetric. Some mild swellingof her bilateral MCP and PIP joints and decrease in motion of the bilateral wrist that is baseline per patient. No edema. Normal range of motion. Neurologic: Alert and oriented. Normal tone and bulk. No facial drooping. Normal speech. 5/5 strength in bilateral upper and lower extremities. Sensation to light touch intact throughout. Normal gait. Skin: No rashes. No edema. Psych: Normal affect. Normal behavior. Emergency Department Course Imaging: XR Shoulder Right G/E 3 Views Final Result Impression: 1. Right shoulder negative for fracture or joint malalignment. 2. Maintained joint spacing in the glenohumeral and acromioclavicular joints, with relative absence of degenerative arthritis. 3. Cortical erosions versus defect in the posterior superior humeral head, may represent sequela of inflammatory arthritis, chronic rotator cuff tendinopathy, or prior humeral subluxation injury. No glenoid deformity or erosion. HOMER LOPEZ MD SYSTEM ID: [id number] Report per radiology Laboratory: Labs Ordered and Resulted from Time of ED Arrival to Time of ED Departure COMPREHENSIVE METABOLIC PANEL - Abnormal Result Value Sodium 137 Potassium 3.6 Chloride 106 Carbon Dioxide (CO2) 28 Anion Gap 3 Urea Nitrogen 8 Creatinine 0.48 (*) Calcium 8.4 (*) Glucose 103 (*) Alkaline Phosphatase 178 (*) AST 17 ALT 31 Protein Total 7.2 Albumin 2.0 (*) Bilirubin Total 0.4 GFR Estimate >90 CBC WITH PLATELETS AND DIFFERENTIAL - Abnormal WBC Count 16.0 (*) RBC Count 4.48 Hemoglobin 8.5 (*) Hematocrit 30.0 (*) MCV 67 (*) MCH 19.0 (*) MCHC 28.3 (*) RDW 19.9 (*) Platelet Count 717 (*) % Neutrophils 78 % Lymphocytes 14 % Monocytes 6 % Eosinophils 0 % Basophils 1 % Immature Granulocytes 1 NRBCs per 100 WBC 0 Absolute Neutrophils 12.5 (*) Absolute Lymphocytes 2.3 Absolute Monocytes 0.9 Absolute Eosinophils 0.0 Absolute Basophils 0.1 Absolute Immature Granulocytes 0.2 Absolute NRBCs 0.0 Emergency Department Course: Reviewed: I reviewed nursing notes, vitals, past medical history and Care Everywhere Assessments: 706 I obtained history and examined the patient as noted above. 914 I rechecked the patient and explained findings. Interventions: 0757 Dilaudid 0.5mg IV 0757 Solu-medrol 40mg IV Disposition: The patient was discharged to home. Impression & Plan Medical Decision Making: Ashley Gardner is a 41-year-old woman who is afebrile and hemodynamically stable. She has tendernessto the posterior left shoulder with no obvious effusion or warmth of the right shoulder joint. Thereis no evidence of septic joint. She is neurovascularly intact. She is able to abduct the left shoulder in all directions but feels like it becomes locked sometimes. X-ray demonstrates no acute fracture but there is some erosions versus defect that may be secondary to arthritis, tendinopathy, or previous injuries. She has no previous injuries to the shoulder. I reviewed her rheumatology notes in care everywhere. It appears that she was going to initiate cyclosporine at her last rheumatology visit, however, it appears that she never did that and she does not recall that plan. She was given pain medication here and an increased dose of steroids as a burst. She feels improvements after the above intervention. Lab work-up as noted as above. She has a chronic anemia and has no active bleeding. She had a hemoglobin in March of last year that was also 8.7 is 8.5 today. She has no signs or symptoms of acute blood loss anemia and does not require emergent blood transfusion today. She does not recall anywork-up of her anemia previously so I recommended she follow-up with primary care physician for further work-up and evaluation of her anemia and she is understanding. I think most importantly, she needs to follow-up with her environmental health technician that she has an appointment scheduled on the 02/16/2022. I think this is most important for her to make that appointment and she is understanding. Both her self andher environmental health technician have had presentation with her course of illness and have offered a second opinion. I placed a consult for rheumatology outpatient follow-up through our health system and she is in agreement with this plan. She also talked to her primary care physician. I will give her a small amount of pain medication to help her through until she can follow-up with her primary care physician. I counseled her on the use of opiate pain medication and reviewed her on the [place] prescription monitoring database. She was counseled to use opiate pain medication. She is in agreement with plan her questions were answered. Return precautions were given. I think she is safe for discharge home at thistime. She is in agreement and her questions were answered. She was no distress at time of discharge. Diagnosis: ICD-10-CM 1. Acute pain of right shoulder M25.511 2. Inflammatory polyarthritis (H) M06.4 Adult Rheumatology Die Tester Referral 3. Anemia, unspecified type D64.9 Discharge Medications: Discharge Medication List as of 02/05/2022 9:58 AM START taking these medications Details oxyCODONE-acetaminophen (PERCOCET) 5-325 MG tablet Take 1 tablet by mouth every 6 hours as needed for pain, Disp-10 tablet, R-0, Local Print Scribe Disclosure: I, Courtney Martin, am serving as a scribe at 7:03 AM on 02/05/2022 to document services personally performed by Shine Storey MD based on my observations and the provider's statements to me. Shine Storey MD 02/05/222129 documented in this encounter Plan of Treatment Upcoming Encounters Date Type Specialty Care Team Description 11/20/2022 Office Visit Rheumatology Eugenio Flaherty MD [address] [place] [id number] (Wo rk) Scheduled Referrals Name Type Priority Associated Diagnoses Order S chedule Adult Rheumatology Referral Routine: Next Inflammatory Expected : Die Tester Referral available opening polyarthritis (H) 02/05/2022 (Approximate), Expires: 02/05/2023 documented as of this encounter Procedures Procedure Name Priority Date/Time Associated Comments Diagnosis XR SHOULDER RIGHT G/E STAT 02/05/2022 8:38 AM Results for this 3 VIEWS CDT procedure are i n the results section. EXTRA TUBE STAT 02/05/2022 7:52 AM Results f or this CDT procedure are i n the results section. EXTRA RED TOP TUBE STAT 02/05/2022 7:52 AM Res ults for this CDT procedure are i n the results section. EXTRA BLUE TOP TUBE STAT 02/05/2022 7:52 AM Re sults for this CDT procedure are i n the results section. CBC WITH PLATELETS AND STAT 02/05/2022 7:51 AM Results for this DIFFERENTIAL CDT procedure are i n the results section. CBC WITH PLATELETS & STAT 02/05/2022 7:51 AM R esults for this DIFFERENTIAL CDT procedure are i n the results section. COMPREHENSIVE STAT 02/05/2022 7:51 AM Results for this METABOLIC PANEL CDT procedure ar e in the results section. documented in this encounter Results XR Shoulder Right G/E 3 Views (02/05/2022 8:38 AM CDT) Anatomical Region Laterality Modality Shoulder, Right Shoulder Right Digital Radiogr aphy Specimen (Source) Anatomical Location Collection Method / Collectio n Time Received Time / Laterality Volume Impressions 02/05/2022 8:48 AM CDT Impression: 1. ??Right shoulder negative for fractur e or joint malalignment. 2. ??Maintained joint spacing in the gle nohumeral and acromioclavicular joints, with relative absence of degener ative arthritis. 3. ??Cortical erosions versus defect in the posterior superior humeral head, may represent sequela of inflammat ory arthritis, chronic rotator cuff tendinopathy, or prior humeral subl uxation injury. No glenoid deformity or erosion. HOMER LOPEZ MD SYSTEM ID: ??[id number] Narrative 02/05/2022 8:48 AM CDT Examination: ??XR SHOULDER RIGHT G/E 3 VIEWS Date: ??02/05/2022 8:38 AM Clinical Information: Shoulder pain, his tory of rheumatoid arthritis. Comparison: none. Procedure Note Homer Lopez MD - 2 Examination: XR SHOULDER RIGHT G/E 3 VIE WS Date: 02/05/2022 8:38 AM Clinical Information: Shoulder pain, his tory of rheumatoid arthritis. Comparison: none. Impression: 1. Right shoulder negative for fracture or joint malalignment. 2. Maintained joint spacing in the gleno humeral and acromioclavicular joints, with relative absence of degener ative arthritis. 3. Cortical erosions versus defect in th e posterior superior humeral head, may represent sequela of inflammat ory arthritis, chronic rotator cuff tendinopathy, or prior humeral subl uxation injury. No glenoid deformity or erosion. HOMER LOPEZ MD SYSTEM ID: [id number] Shine Storey MD IMG DIAGNOSTIC IMAGING ORDER WILFRED Extra Red Top Tube (02/05/2022 7:52 AM CDT) athologist Signature Hold Specimen [facility] 02/05/2022 LABORATORY 9:04 AM CDT Specimen Anatomical Collection Method / Collection Time Recei omar Time (Source) Location / Volume Laterality Blood BLOOD SPECIMEN / Venipuncture / 02/05/2022 7:52 2021 8:00 Unknown Unknown AM CDT AM CDT Shine Storey MD LAB - BLOOD ORDERABLES Performing Organization Address City/State/[place] [phone] Care Lab [address] Lab (1st floor, no room number) Extra Blue Top Tube (02/05/2022 7:52 AM CDT) athologist Signature Hold Specimen [facility] 02/05/2022 LABORATORY 9:04 AM CDT Specimen Anatomical Collection Method / Collection Time Recei omar Time (Source) Location / Volume Laterality Blood BLOOD SPECIMEN / Venipuncture / 02/05/2022 7:52 2021 8:01 Unknown Unknown AM CDT AM CDT Shine Storey MD LAB - BLOOD ORDERABLES Performing Organization Address City/State/[place] [phone] Care Lab [address] Lab (1st floor, no room number) (ABNORMAL) CBC with platelets and differential (02/05/2022 7:51 AM CDT) [facility] Method Time Signature WBC Count 16.0 (H) 4.0 - 02/05/2022 [facility] 11.0 8:04 AM CDT 10e3/uL RBC Count 4.48 3.80 - 02/05/2022 [facility] 5.20 8:04 AM CDT 10e6/uL Hemoglobin 8.5 (L) 11.7 - 02/05/2022 [facility] 15.7 g/dL 8:04 AM CDT Hematocrit 30.0 (L) 35.0 - 02/05/2022 [facility] 47.0 % 8:04 AM CDT MCV 67 (L) 78 - 100 02/05/2022 [facility] fL 8:04 AM CDT MCH 19.0 (L) 26.5 - 02/05/2022 [facility] 33.0 pg 8:04 AM CDT MCHC 28.3 (L) 31.5 - 02/05/2022 [facility] 36.5 g/dL 8:04 AM CDT RDW 19.9 (H) 10.0 - 02/05/2022 [facility] 15.0 % 8:04 AM CDT Platelet Count 717 (H) 150 - 450 02/05/2022 [facility] 10e3/uL 8:04 AM CDT % Neutrophils 78 % 02/05/2022 [facility] 8:04 AM CDT % Lymphocytes 14 % 02/05/2022 [facility] 8:04 AM CDT % Monocytes 6 % 02/05/2022 [facility] 8:04 AM CDT % Eosinophils 0 % 02/05/2022 [facility] 8:04 AM CDT % Basophils 1 % 02/05/2022 [facility] 8:04 AM CDT % Immature 1 % 02/05/2022 [facility] Granulocytes 8:04 AM CDT NRBCs per 100 0 <1 /100 02/05/2022 [facility] WBC 8:04 AM CDT Absolute 12.5 (H) 1.6 - 8.3 02/05/2022 [facility] Neutrophils 10e3/uL 8:04 AM CDT Absolute 2.3 0.8 - 5.3 02/05/2022 [facility] Lymphocytes 10e3/uL 8:04 AM CDT Absolute 0.9 0.0 - 1.3 02/05/2022 [facility] Monocytes 10e3/uL 8:04 AM CDT Absolute 0.0 0.0 - 0.7 02/05/2022 [facility] Eosinophils 10e3/uL 8:04 AM CDT Absolute 0.1 0.0 - 0.2 02/05/2022 [facility] Basophils 10e3/uL 8:04 AM CDT Absolute 0.2 <=0.4 02/05/2022 [facility] Immature 10e3/uL 8:04 AM CDT Granulocytes Absolute NRBCs 0.0 10e3/uL 02/05/2022 [facility] 8:04 AM CDT Specimen Anatomical Collection Method / Collection Time Recei omar Time (Source) Location / Volume Laterality Blood BLOOD SPECIMEN / Venipuncture / 02/05/2022 7:51 2021 8:00 Unknown Unknown AM CDT AM CDT Shine Storey MD LAB - BLOOD ORDERABLES Performing Organization Address City/State/ZIP Code Phon e Number [facility] [place] [address] Care Lab [address] Lab (1st floor, no room number) (ABNORMAL) Comprehensive metabolic panel (02/05/2022 7:51 AM CDT) [facility] gist Method Time Signature Sodium 137 133 - 144 02/05/2022 LABORATORY mmol/L 8:29 AM CDT Potassium 3.6 3.4 - 5.3 02/05/2022 [facility] mmol/L 8:29 AM CDT Chloride 106 94 - 109 02/05/2022 [facility] mmol/L 8:29 AM CDT Carbon Dioxide 28 20 - 32 02/05/2022 LABORATORY (CO2) mmol/L 8:29 AM CDT Anion Gap 3 3 - 14 02/05/2022 [facility] mmol/L 8:29 AM CDT Urea Nitrogen 8 7 - 30 02/05/2022 [facility] mg/dL 8:29 AM CDT Creatinine 0.48 (L) 0.52 - 02/05/2022 [facility] 1.04 8:29 AM CDT mg/dL Calcium 8.4 (L) 8.5 - 02/05/2022 LABORATORY 10.1 8:29 AM CDT mg/dL Glucose 103 (H) 70 - 99 02/05/2022 LABORATORY mg/dL 8:29 AM CDT Alkaline 178 (H) 40 - 150 02/05/2022 LABORATORY Phosphatase U/L 8:29 AM CDT AST 17 0 - 45 02/05/2022 LABORATORY U/L 8:29 AM CDT ALT 31 0 - 50 02/05/2022 [facility] U/L 8:29 AM CDT Protein Total 7.2 6.8 - 8.8 02/05/2022 LABORATORY g/dL 8:29 AM CDT Albumin 2.0 (L) 3.4 - 5.0 02/05/2022 LABORATORY g/dL 8:29 AM CDT Bilirubin Total 0.4 0.2 - 1.3 02/05/2022 LABORATORY mg/dL 8:29 AM CDT GFR Estimate >90 >60 02/05/2022 LABORATORY mL/min/1. 8:29 AM CDT 73m2 Comment: Effective October 14, 2021 eGF Rcr in adults is calculated using the 2020 CKD-EPI creatinine equation which includ es age and gender (Db et al., NEJ, DOI: 10.1056/KDKKfl1033322) Specimen Anatomical Collection Method / Collection Time Recei omar Time (Source) Location / Volume Laterality Blood BLOOD SPECIMEN / Venipuncture / 02/05/2022 7:51 2021 8:01 Unknown Unknown AM CDT AM CDT Shine Storey MD LAB - BLOOD ORDERABLES Performing Organization Address City/State/ZIP Code Phon [place] [phone] Care Lab [address] Lab (1st floor, no room number) documented in this encounter Visit Diagnoses Diagnosis Acute pain of right shoulder Inflammatory polyarthritis (H) Unspecified inflammatory polyarthropathy Anemia, unspecified type documented in this encounter Administered Medications Inactive Administered Medications - up to 3 most recent administrations Medication Order MAR Action Action Date Dose Rate Site HYDROmorphone (PF) (DILAUDID) Given 02/05/2022 7:57 AM CDT 0.5 m g injection 0.5 mg 0.5 mg, Intravenous, ONCE, On Kerri 02/05/22 at 0720, For 1 dose methylPREDNISolone sodium succinate Given 02/05/2022 7:57 AM CDT 40 mg (solu-MEDROL) injection 40 mg 40 mg, Intravenous, ONCE, On Kerri 02/05/22 at 0720, For 1 dose, Doses greater than or equal to 1000 mg administer over 60 minutes Doses greater than or equal to 500 mg administer over 30-60 minutes Doses greater than or equal to 250 mg administer over 15-30 minutes Doses less than or equal to 125 mg IVP over 3-5 minutes documented in this encounter Active and Recently Administered Medications Times are shown in CDT. Scheduled Medication Order 02/03/2022 02/04/2022 02/05/2022 HYDROmorphone (PF) (DILAUDID) injection 0.5 mg (COMPLETED) 0757 (Given - Provider: Josee Hernandez, AMITA) 0.5 mg, Intravenous, ONCE, On Kerri 02/05/22 at 0720, For 1 dose methylPREDNISolone sodium succinate (solu-MEDROL) injection 40 m g (COMPLETED) 0757 (Given - Provider: Josee Hernandez, AMITA) 40 mg, Intravenous, ONCE, On Kerri 02/05/22 at 0720, For 1 dose, Doses greater than or equal to 1000 mg administer over 60 minutes Doses greater than or equal to 500 mg administer over 30-60 minutes Doses greater than or equal to 250 mg administ er over 15-30 minutes Doses less than or equal to 125 mg IVP over 3-5 minutes documented in this encounter Care Teams Personal Computer Network Engineer Relationship Specialty Start Date End Date Ashley Ojeda DO PCP - General 02/05/[address] [address] documented as of this encounter
--- OUTSIDE RECORDS SUMMARY | 2022-08-28 04:47 | XMS_ITS | Encounter Summary ---
:1980 Author Organization [place] Address [facility] [place] [address] Care Team Providers Name Role Phone Ashley Ojeda DO Primary Care Provider Pamella Soto PA-C Unavailable [phone] Encounter Details Date Type Department Care Team Description 02/05/2022 Documentation Only INTERFACED REPORT Unknown, Provider Social History Tobacco Use Types Packs/Day Years Used Date Smoking Tobacco: Never Assessed Sex Assigned at Date Recorded Not on file COVID-19 Exposure Response Date Recorded In the last 10 days, have you been in contact with No / Unsu re 02/05/2022 6:54 AM CDT someone who was confirmed or suspected to have Coronavirus/COVID-19? documented as of this encounter Plan of Treatment Upcoming Encounters Date Type Specialty Care Team Description 11/20/2022 Office Visit Rheumatology Eugenio Flaherty MD [address] [place] [phone] (Wo rk) documented as of this encounter Visit Diagnoses Not on filedocumented in this encounter Care Teams Chief Environmental Commitment Officer Relationship Specialty Start Date End Date Ashley Ojeda DO PCP - General 02/05/22 [facility] [address] [address] Pamella Soto, Jovanny Rheumatology 07/18/22 MAHIN Provider [address] [place] [address] documented as of this encounter
--- OUTSIDE RECORDS SUMMARY | 2022-08-28 04:47 | XMS_ITS | Encounter Summary ---
:1980 Author Organization [place] Address [address] [place] [address] Care Team Providers Name Role Phone Ashley Ojeda DO Primary Care Provider Encounter Details Date Type Department Care Team Description 02/05/2022 Travel Social History Tobacco Use Types Packs/Day Years [...] 11/20/2022 Office Visit Rheumatology Eugenio Flaherty MD [address] [place] [address] [phone] (Wo rk) documented as of this encounter Visit Diagnoses Not on filedocumented in this encounter Care Teams Retail Product Advisor Relationship Specialty Start Date End Date Ashley Ojeda DO PCP - General 02/05/[address] [address] [address] documented as of this encounter
--- OUTSIDE RECORDS SUMMARY | 2022-08-28 04:47 | XMS_ITS | Clinical Summary ---
:1980 Author Organization [place] Address [address] [place] [address] Care Team Providers Name Role Phone Ashley Ojeda DO Primary Care Provider Pamella Soto PA-C Unavailable [phone] Allergies Active Allergy Reactions Severity Noted Date Comments [place] Oil Anaphylaxis High 04/27/2020 Enoxaparin Rash Low 09/19/2009 Estrogens 09/20/2012 Other reaction( s): *Unknown Leflunomide Other (See Comments) 01/10/2018 out o f it Methotrexate Shortness Of Breath High 01/10/2018 Penicillins Rash Low 12/30/2006 Sodium Metabisulfite Shortness Of Breath High 10/17/2019 Tofacitinib Shortness Of Breath High 10/17/2019 Left susanne e pain, rash, uti Medications Medication Sig Dispensed Refills Start Date End Date Status HYDROcodone-acetamino Take 1-2 tablets by 0 05/12/20 Active phen (NORCO) 5-325 MG mouth Taking 1/2 tablet tablet as needed ibuprofen Take 600 mg by 0 05/12/2022 Acti ve (ADVIL/MOTRIN) 600 MG mouth tablet predniSONE TAKE 2 TABLETS BY 0 06/26/2022 Active (DELTASONE) 5 MG MOUTH ONCE DAILY tablet WITH A MEAL DIRECTED Encounters Date Type Specialty Care Team Description 07/21/2022 Telephone Rheumatology Pamella Soto Flare MAHIN Ferguson 07/16/2022 Telephone Rheumatology Pamella Soto Patient Req uperfecto Ferguson PA-C 07/14/2022 Office Visit Rheumatology Pamella Soto Seronegativ e erosive rheumatoid arthritis (H) (Primary Dx); MAHIN Ferguson High risk medic ations (not anticoagulants) long-term use; On prednisone t herapy 07/14/2022 Travel 07/03/2022 Telephone Cherrie Mcguire RN Pt. Informa tion/instruction from Last 3 Months Social History Tobacco Use Types Packs/Day Years Used Date Smoking Tobacco: Never Smokeless Tobacco: Never Sex Assigned at Date Recorded Not on file Last Filed Vital Signs Vital Sign Reading Time Taken Comments Blood Pressure 120/80 07/14/2022 9:57 AM CDT Pulse 105 02/05/2022 8:15 AM CDT Temperature 36.6 ??C (97.8 ??F) 02/05/2022 6:58 AM CDT Respiratory Rate 18 02/05/2022 6:58 AM CDT Oxygen Saturation 94% 02/05/2022 10:00 AM CDT Inhaled Oxygen Concentration - - Weight 59 kg (130 lb) 07/14/2022 9:57 AM CDT Height 170.2 cm (5' 7) 07/14/2022 9:57 AM CDT Body Mass Index 20.36 07/14/2022 9:57 AM CDT Plan of Treatment Upcoming Encounters Date Type Specialty Care Team Description 11/20/2022 Office Visit Rheumatology Eugenio Flaherty MD [address] [place] [phone] (Wo rk) Health Maintenance Due Date Last Done Comments ADVANCE CARE PLANNING 1980 ANNUAL REVIEW OF HM ORDERS 1980 HEPATITIS B IMMUNIZATION (1 1982 of 3 - 3-dose series) YEARLY PREVENTIVE VISIT 1980 COVID-19 Vaccine (#1) 06/21/1983 HIV SCREENING 1997 HEPATITIS C SCREENING 2000 PAP 2003 INFLUENZA VACCINE (#1) 2022 08/26/2009, 08/24/2007 DTAP/TDAP/TD IMMUNIZATION (3 04/07/2025 04/07/2015, - Td or Tdap) 06/11/1998 PHQ-2 (once per calendar Completed 07/14/2022 year) IPV IMMUNIZATION Aged Out No longer eligi ble based on patient's age to complete this to pic MENINGITIS IMMUNIZATION Aged Out No longe r eligible based on patient's age to complete this to pic Pneumococcal Vaccine: Aged Out No longer eligible based Pediatrics (0 to 5 Years) and on patient's age to At-Risk Patients (6 to 64 comple te this topic Years) Insurance Payer Benefit Plan / Subscriber ID Effective Dates Phone Addre ss Type Group BLUE PLUS BLUE PLUS [id number] 2019-Present [phone] [address] [place] [id number] HMO ADVANTAGE [place] [address] [place] [address] Care Teams Fiberglass Autobody Repairer Relationship Specialty Start Date End Date Ashley Ojeda DO PCP - General 02/05/[address] [place] [address] Pamella Soto, Assigned Rheumatology 07/18/22 PA-C Provider [address] [place], [place] [phone]
--- OUTSIDE RECORDS SUMMARY | 2022-08-28 04:47 | XMS_ITS | Encounter Summary ---
:1980 Author Organization [place] Address [address] [place] [address] Care Team Providers Name Role Phone Ashley Ojeda DO Primary Care Provider Encounter Details Date Type Department Care Team Description 07/14/2022 Travel Social History Tobacco Use Types Packs/Day [...] 11/20/2022 Office Visit Rheumatology Eugenio Flaherty MD [address] [place] [address] [phone] (Wo rk) documented as of this encounter Visit Diagnoses Not on filedocumented in this encounter Care Teams Health Club Manager Relationship Specialty Start Date End Date Ashley Ojeda DO PCP - General 02/05/[address] [facility] [address] [place] [address] [address] documented as of this encounter
--- OUTSIDE RECORDS SUMMARY | 2022-08-28 04:47 | XMS_ITS | Encounter Summary ---
:1980 Author Organization [place] Address [address] [place] [address] Care Team Providers Name Role Phone Ashley Ojeda DO Primary Care Provider Reason for Visit Reason Onset Date Comments Pt. Information/instruction 07/03/2022 Encounter Details Date Type Department Care Team Description 07/03/2022 Telephone [facility] Nurse Cherrie Mcguire, RN Pt. Advisors Information/instruction [address] [place] [phone] Social History Tobacco Use Types Packs/Day Years Used Date Smoking Tobacco: Never Assessed Sex Assigned at Date Recorded Not on file documented as of this encounter Miscellaneous Notes Telephone Encounter - Cherrie Mcguire RN - 07/03/2022 8:16 AM CDT Pt's mother calling for resources for physical therapy for patient and water therapy. Pt is not with the caller and there is not a consent to communicate, so ad copy writer referred caller to the following website: [email or web address] She is going to look there and discuss with the patient. Cherrie Mcguire RN [facility] Nurse Advisor 8:33 AM 07/03/2022 documented in this encounter Plan of Treatment Upcoming Encounters Date Type Specialty Care Team Description 11/20/2022 Office Visit Rheumatology Eugenio Flaherty MD [address] [place] [address] [phone] (Wo rk) documented as of this encounter Visit Diagnoses Not on filedocumented in this encounter Care Teams Seam Hammerer Relationship Specialty Start Date End Date Ashley Ojeda DO PCP - General 02/05/[address] [address] documented as of this encounter
[2022-08-28] MEDS: KETOROLAC 30 MG/ML inj IVP (04:49)
[2022-08-28] MEDS: LORazepam 2 MG/ML inj 1 MG IVP (04:49)
[2022-08-28] MEDS: METHYLPREDNISOLONE SOD SUCC 62.5 MG/ML (125) 125 MG IVP (04:49)
[2022-08-28 05:27] VITALS: BP 118/77; PULSE 108; RESP 18; O2SAT 98
--- NOTE | 2022-08-28 05:42 | ED.GENADULT ---
HPI - General Adult General Date Seen: 08/28/22 Chief complaint: Headache/Migraine Stated complaint: Headache Time Seen by Provider: 08/28/22 03:45 Source: patient Mode of arrival: ambulatory Limitations: no limitations History of Present Illness HPI narrative: 41-year-old female with a long history of refractory rheumatoid arthritis who presents with three day history of worsening right-sided headache and neck pain. She has been seeing a chiropractor and having regular adjustments. The pain is severe to the point that she is unable to sleep. She has tried Tylenol. She is chronically on prednisone. Her rheumatoid arthritis has been refractory to virtually every medication. She recently got a 2nd opinion from a different assistant director of public works who had nothing new to offer. Her prednisone dose is 10 mg daily. Currently has swelling in her left wrist and left knee as well as the right shoulder and neck. There are no radicular symptoms. No neurologic issues. No visual changes. No nausea or vomiting. Related Data Home Medications Medication Instructions Recorded Confirmed hydrocodone 5 mg-acetaminophen 325 1 tab PO Q4H PRN 08/28/22 08/28/22 mg tablet prednisone 5 mg tablet 10 mg PO DAILY 08/28/22 08/28/22 Previous Rx's Medication Instructions Recorded meloxicam 15 mg tablet 15 mg PO DAILY #30 tabs 08/28/22 tizanidine 4 mg tablet 4 mg PO Q8H PRN muscle spasticity 08/28/22 #30 tabs Allergies Allergy/AdvReac Type Severity Reaction Status Date / Time methotrexate Allergy Intermediate Short of Verified 08/28/22 04:18 Breath sulfite Allergy Intermediate Short of Verified 08/28/22 04:18 Breath tofacitinib Allergy Intermediate Short of Verified 08/28/22 04:18 Breath enoxaparin Allergy Mild Hives Verified 08/28/22 04:18 Estrogens Allergy Mild Unknown Verified 08/28/22 04:18 Penicillins Allergy Mild Hives Verified 08/28/22 04:18 Review of Systems Narrative: Review of systems is as outlined above otherwise noted to be negative. PFSH PFS Medical History (Updated 08/28/22 @ 05:47 by Rivas Curtis MD) DVT (deep venous thrombosis) Factor V Leiden Microcytic anemia Pulmonary embolism Rheumatoid arthritis Steroid dependence Tobacco use disorder Surgical History (Updated 08/28/22 @ 04:47 by Bipin Tsai, RN) H/O lumbar discectomy H/O synovectomy Status post total hip replacement, left Social History Smoking Status: Former smoker Second hand tobacco smoke exposure: No How often do you have a drink containing alcohol: never How often do you have six or more drinks on one occasion: Never AUDIT-C Alcohol total score: 0 Non-prescribed substance use: denies use Exam Narrative: Exam Narrative: Vitals noted. HEENT: Conjunctiva clear. Tympanic membranes are pearly white bilaterally. Posterior pharynx is clear without erythema or exudate. Neck is supple without adenopathy, thyromegaly, carotid bruit. She has full range of motion but is tender at the occipital insertion. There is some pain with side bending and rotation. Lungs: Clear to auscultation in all delgado. No wheezes, rales, rhonchi. Heart: Regular rate and rhythm without murmur. Abdomen: Soft and nontender. No guarding, rigidity, rebound. Bowel sounds are normal. No palpable masses. Extremities: She has a left wrist effusion and a small left knee effusion. Skin: No abnormalities noted of the exposed skin. Neurologic: Awake, alert, fully oriented. Neurologic exam is nonfocal. Const: Vital Signs, click to edit/add: Vital Signs - 24 hr 08/28/22 03:57 08/28/22 04:35 08/28/22 05:27 Temperature 98.3 F Pulse Rate [Right Pulse Oximeter] 115 H 108 H Respiratory Rate 18 18 Blood Pressure [Ri ght Upper Arm] 125/85 118/77 Pulse Oximetry 99 98 98 Oxygen Delivery Me thod Room Air Room Air 08/28/22 06:31 Temperature 98.3 F Pulse Rate [Right Pulse Oximeter] Respiratory Rate Blood Pressure [Ri ght Upper Arm] Pulse Oximetry Oxygen Delivery Me thod Course Course Hospital Course: Patient was seen and examined. We had a long discussion regarding options for pain management. Her father is willing to bring her home from the ER so we treated her headache with 1 L of saline, 30 mg of IV Toradol, 1 mg of IV Ativan. She was able to get some sleep here in the department and awoke with an improved headache. Vital Signs Vital signs: Initial Vital Signs Temperature 98.3 F 08/28/22 03:57 Temperature Source Temporal Artery Scan 08/28/22 03:57 Pulse Rate 115 H 08/28/22 03:57 Respiratory Rate 18 08/28/22 03:57 Blood Pressure 125/85 08/28/22 03:57 Blood Pressure Mean 98 08/28/22 03:57 Blood Pressure Position Sitting 08/28/22 03:57 Pulse Oximetry 99 08/28/22 03:57 Oxygen Delivery Method 08/28/22 03:57 Vital Signs Temperature 98.3 F 08/28/22 03:57 Pulse Rate 115 H 08/28/22 03:57 Respiratory Rate 18 08/28/22 03:57 Blood Pressure 125/85 08/28/22 03:57 Pulse Oximetry 99 08/28/22 03:57 Oxygen Delivery Method 08/28/22 03:57 Temperature 98.3 F 08/28/22 06:31 Pulse Rate 108 H 08/28/22 05:27 Respiratory Rate 18 08/28/22 05:27 Blood Pressure 118/77 08/28/22 05:27 Pulse Oximetry 98 08/28/22 05:27 Oxygen Delivery Method 08/28/22 05:27 Discharge Plan Discharge Clinical Impression: Headache Patient Disposition: Home w/ Parent or Adult Condition: Improved Additional Instructions: Continue current medications. Continue infant caregiver. Heat, stretching, meloxicam 15 mg daily, tizanidine 4 mg 3 times daily as needed. Medical cannabis might be a reasonable option for you. Prescriptions: New meloxicam 15 mg tablet 15 mg PO DAILY Qty: 30 0RF tizanidine 4 mg tablet 4 mg PO Q8H PRN (Reason: muscle spasticity) Qty: 30 0RF No Action prednisone 5 mg tablet 10 mg PO DAILY Label Comments: TAKE 2 TABLETS BY MOUTH ONCE DAILY WITH A MEAL DIRECTED hydrocodone-acetaminophen 5-325 mg tablet 1 tab PO Q4H PRN Label Comments: TAKE 1 TABLET BY MOUTH EVERY 4 HOURS NEEDED FOR PAIN . DO NOT EXCEED 4000 MG OF ACETAMINOPHEN PER 24 HOURS Follow Up/Referrals: Ashley Ojeda [Primary Care Provider] - Stand Alone Forms: [facility] Instructions
[2022-08-28 06:31] VITALS: TEMP 36.8
== END 2022-08-28 07:34 | disposition home or self-care (01) ==
PROVIDERS: Emergency Provider Family Medicine; PCP Internal Medicine
DX: R51.9 Headache, unspecified (principal)
CPT/HCPCS: 94761; 96374; 96375; 99282; 99284; J1885; J2060; J2930; J7030

== ENCOUNTER 2022-11-08 22:23 | Emergency (ER) | payer BC, SELFPAY ==
[2022-11-08 22:27] VITALS: BP 110/74; PULSE 98; RESP 16; TEMP 36.5; O2SAT 96; BMI 21.9
--- NOTE | 2022-11-08 22:52 | CRLHL7_ITS ---
For Patients: As a result of the Century Cures Act, medical imaging exams and procedure reports are released immediately into your electronic medical record. You may view this report before your referring provider. If you have questions, please contact your health care provider. Indication: Left hip pain. Technique: Two views of the left hip. Comparison: None Findings/Impression: No acute fracture or dislocation. 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 Vascular calcifications are noted. Dictated by Terese Madrigal MD @ 11/09/2022 12:35:07 AM (Electronically Signed)
--- NOTE | 2022-11-08 22:52 | CRLHL7_ITS ---
For Patients: As a result of the Century Cures Act, medical imaging exams and procedure reports are released immediately into your electronic medical record. You may view this report before your referring provider. If you have questions, please contact your health care provider. Indication: SI joint and left hip pain. Technique: Single AP view of the pelvis. Comparison: None available. Findings/Impression: Right total hip arthroplasty. Chronic sequelae of prior avulsion fracture versus heterotopic ossification adjacent to the right femoral greater trochanter. 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 No acute fracture or dislocation identified. No abnormality identified of the sacroiliac joints, however evaluation is limited due to presence of overlying fecal matter. Mild degenerative changes of the pubic symphysis. Extensive vascular calcifications. Dictated by Terese Madrigal MD @ 11/09/2022 12:31:52 AM (Electronically Signed)
[2022-11-09] MEDS: LIDOCAINE 5% PATCH 1 PATCH TRANSDERMA (00:55)
--- NOTE | 2022-11-09 01:01 | ED.NURSE ---
[place] 5-325mg talets #2 dispensed to patient per protocol per Dr. Spencer verbal order.
--- NOTE | 2022-11-09 03:19 | ED.GENADULT ---
HPI - General Adult General Chief complaint: Hip Injury/Pain Stated complaint: back an hip pain Time Seen by Provider: 11/08/22 22:40 History of Present Illness HPI narrative: 41-year-old woman presenting to the emergency department with complain of left hip area pain and pain in low back. Does have a history of rheumatoid arthritis and maintained on chronic prednisone. Sounds like 10 mg daily. Two days ago with these pains boosted her prednisone dosing with knowledge of care provider. That did seem to help a little bit but pain has still been difficult to manage. Review records see that meloxicam was prescribed at 1 point. At last visit was also prescribed for [place] but it does not sound as if she ever actually picked that up. All for an unrelated matter. 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 Has been no new trauma. She also has had diskectomy to some degree of the L5 disc per report. Right hip was done about a year and half ago. She has not had a fever. No swelling or redness. Feels like it is just deep bruise in the left hip is how she describes her discomfort. Achy across the low back as well. Related Data Home Medications Medication Instructions Recorded Confirmed hydrocodone 5 mg-acetaminophen 325 1 tab PO Q4H PRN 08/28/22 11/08/22 mg tablet prednisone 5 mg tablet 10 mg PO DAILY 08/28/22 11/08/22 Previous Rx's Medication Instructions Recorded meloxicam 15 mg tablet 15 mg PO DAILY #30 tabs 08/28/22 tizanidine 4 mg tablet 4 mg PO Q8H PRN muscle spasticity 08/28/22 #30 tabs hydrocodone 5 mg-acetaminophen 325 1 - 2 tab PO TID PRN pain #20 tabs 11/09/22 mg tablet Allergies Allergy/AdvReac Type Severity Reaction Status Date / Time methotrexate Allergy Intermediate Short of Verified 11/08/22 22:32 Breath sulfite Allergy Intermediate Short of Verified 11/08/22 22:32 Breath tofacitinib Allergy Intermediate Short of Verified 11/08/22 22:32 Breath enoxaparin Allergy Mild Hives Verified 11/08/22 22:32 Estrogens Allergy Mild Unknown Verified 11/08/22 22:32 Penicillins Allergy Mild Hives Verified 11/08/22 22:32 Review of Systems Status of ROS: Reports: 10 or more systems reviewed and unremarkable except as noted in History and below [facility] Medical History DVT (deep venous thrombosis) Factor V Leiden Microcytic anemia Pulmonary embolism Rheumatoid arthritis Steroid dependence Tobacco use disorder Surgical History H/O lumbar discectomy H/O synovectomy Status post total hip replacement, left Social History Smoking Status: Former smoker Do you use any of these nicotine containing products: None Second hand tobacco smoke exposure: No How often do you have a drink containing alcohol: never How often do you have six or more drinks on one occasion: Never AUDIT-C Alcohol total score: 0 Non-prescribed substance use: denies use Exam Narrative: Exam Narrative: Pleasant. NAD. Interview is a little challenging. Breathing easily. She has sprawled out somewhat on her right side in apparent effort to stretch back while lying on the bed, when I enter the room. Skin is warm and dry without erythema or rash. No evidence of trauma. She is sore to palpation about the left greater trochanter a little bit but inconsistently so. Describes a bruise like feeling in her inguinal area. I do not appreciate any swelling on the left side. There is a well-healed midline scar in the low lumbar spine. She does have significant pain to palpation over the left SI joint area more than the right. Compression of the iliac crests leads to pain directly where I am pressing on the right iliac crest but not really in the back so much. Corby's causes pain in bilateral hips/inguinal area not the SI joints so much. Rotation of the left hip causes more that bruised feeling and is just generally tight or full. Const: Vital Signs, click to edit/add: Vital Signs - 24 hr 11/08/22 22:27 Temperature 97.7 F Pulse Rate [Pulse Oximeter] 98 Respiratory Rate 16 Blood Pressure [Ri ght Upper Arm] 110/74 Pulse Oximetry 96 Oxygen Delivery Me thod Room Air Documenting provider has reviewed patient's vital signs: yes Course Vital Signs Vital signs: Initial Vital Signs Temperature 97.7 F 11/08/22 22:27 Temperature Source Temporal Artery Scan 11/08/22 22:27 Pulse Rate 98 11/08/22 22:27 Respiratory Rate 16 11/08/22 22:27 Blood Pressure 110/74 11/08/22 22:27 Blood Pressure Mean 86 11/08/22 22:27 Blood Pressure Position Supine 11/08/22 22:27 Pulse Oximetry 96 11/08/22 22:27 Oxygen Delivery Method 11/08/22 22:27 Vital Signs Temperature 97.7 F 11/08/22 22:27 Pulse Rate 98 11/08/22 22:27 Respiratory Rate 16 11/08/22 22:27 Blood Pressure 110/74 11/08/22 22:27 Pulse Oximetry 96 11/08/22 22:27 Oxygen Delivery Method 11/08/22 22:27 Temperature 97.7 F 11/08/22 22:27 Pulse Rate 98 11/08/22 22:27 Respiratory Rate 16 11/08/22 22:27 Blood Pressure 110/74 11/08/22 22:27 Pulse Oximetry 96 11/08/22 22:27 Oxygen Delivery Method 11/08/22 22:27 Medical Decision Making MDM Narrative Medical decision making narrative: Has been some time since she has had imaging. Think it would be reasonable to do x-rays of the hip and back. I would anticipate seeing some osteoarthritic change. Does not feel like she needs immediate relief of her pain anticipating discharge medications. X-rays reviewed by me show rather severe osteoarthritic change with essentially [id number] at the left femoral acetabular joint. The pelvis imaging showing chronic changes and postoperative change in the right hip. Generally extensive osteoarthritic degeneration. We discussed expectations or needs for pain management. Sounds as though sleep is being affected. Wonder if there might be some other options for steroids more chronically for Ashley. Certainly could pulse this again here but would like to do that more with approval of primary or rheumatology. Placed lidocaine patch on low back/sacroiliac joints. Discharge Plan Discharge Clinical Impression: Rheumatoid arthritis, Hip joint pain, Sacroiliac pain Patient Disposition: Home, Self-Care Condition: Stable Instructions: Rheumatoid Arthritis (ED), Sacroiliitis (ED), Hip Pain (ED) Additional Instructions: I think it would be worth following up with your custodial supervisor or new custodial supervisor if that is the case, to reassess optimal treatment for you, for your rheumatoid arthritis. It may be that there are some other options other than prednisone that would be good? Then you can use the prednisone for flares as well otherwise. Schedule follow-up to discuss potential surgery of your left hip as you are anticipating. I would also schedule with your primary care provider to discuss how you are going to treat this in the interim. Injections into the hip might also be helpful. You do have meloxicam. You can take that in the short term. Probably with a little food. [place] I will send to the pharmacy. This is to be used intermittently for more severe pain. Take these 2 tabs with you for tonight. You can take up to 1000 mg of acetaminophen per dose. Remember that each tablet of [place] has 325 mg of acetaminophen in it. If you find the lidocaine patch helpful, remember there are patches like this available [id number]. Or perhaps your primary care provider would prescribe more. Opiates like [place] can be constipating. Be sure to stay well hydrated generally is this also helps pain and prevent some degree of constipation. If taking [place], might be a good idea to also take a tablet of senna 1 or 2 times a day to keep bowels moving. Otherwise be sure to be keeping up with your fruit and vegetable intake. Take this disc of images to your hip doctor follow up. Prescriptions: New hydrocodone-acetaminophen 5-325 mg tablet 1 - 2 tab PO TID PRN (Reason: pain) Qty: 20 0RF No Action prednisone 5 mg tablet 10 mg PO DAILY Label Comments: TAKE 2 TABLETS BY MOUTH ONCE DAILY WITH A MEAL DIRECTED hydrocodone-acetaminophen 5-325 mg tablet 1 tab PO Q4H PRN Hold Instructions: Doctor's Order Label Comments: TAKE 1 TABLET BY MOUTH EVERY 4 HOURS NEEDED FOR PAIN . DO NOT EXCEED 4000 MG OF ACETAMINOPHEN PER 24 HOURS meloxicam 15 mg tablet 15 mg PO DAILY Qty: 30 0RF Hold Instructions: Order Change tizanidine 4 mg tablet 4 mg PO Q8H PRN (Reason: muscle spasticity) Qty: 30 0RF Follow Up/Referrals: Ashley Ojeda [Primary Care Provider] - Stand Alone Forms: [employer] Info Instructions
== END 2022-11-09 01:03 | disposition home or self-care (01) ==
PROVIDERS: Emergency Provider Family Medicine; PCP Internal Medicine
DX: M06.9 Rheumatoid arthritis, unspecified (principal); M25.552 Pain in left hip; M53.3 Sacrococcygeal disorders, not elsewhere classified
CPT/HCPCS: 72170; 73502; 99284; A9270